=== PATIENT | male | born 1975 | race Caucasian/White ===

== ENCOUNTER 2023-07-06 16:28 | Emergency (ER) | payer OTHER, SELFPAY ==
[2023-07-06 16:40] VITALS: BP 125/77; PULSE 98; RESP 18; TEMP 37.1; O2SAT 99; BMI 24.4
--- NOTE | 2023-07-06 16:59 | ED.NURSE ---
TDap last received August,.
--- NOTE | 2023-07-06 17:20 | ED.WOUNDLAC ---
HPI - Wound/Laceration General Date Seen: 07/06/23 Chief Complaint: Laceration/Wound Stated Complaint: needs sutures on hand Time Seen by Provider: 07/06/23 16:53 Source: patient Mode of arrival: ambulatory Limitations: no limitations History of Present Illness HPI narrative: Patient is a 48-year-old male with no pertinent medical history presenting to emergency department for he laceration to the right hand. Laceration was from a teen some when he was cutting branches down. He is not sure exactly how he caught seen in the chain saw but states this happened shortly prior to arrival. Laceration is just between the thumb and index finger. No other injuries noted. Last Tdap was 2018. Related Data Home Medications Medication Instructions Recorded Confirmed omeprazole magnesium 20 mg 20 mg PO QDAY 09/29/22 09/29/22 capsule,delayed release (Acid [employer]per (omeprazole)) Previous Rx's Medication Instructions Recorded amoxicillin 875 mg-potassium 1 tab PO Q12H #20 tabs 09/29/22 clavulanate 125 mg tablet Allergies Allergy/AdvReac Type Severity Reaction Status Date / Time No Known Drug Allergies Allergy Verified 09/29/22 10:46 Review of Systems Narrative: Negative unless stated in HPI Exam Narrative: Exam Narrative: Const: Well-nourished, Well-developed, in no distress Eyes: PERRL, no conjunctival injection, and symmetrical lids HENT: Atraumatic external nose and ears. Moist mucous membranes. MSK:Extremities w/o deformity, Normal Active ROM Skin: Warm, Dry. 1 cm laceration between the 1st and 2nd digits of the right hand Neuro: Normal Muscle tone, No focal neurological deficits. Psych: Awake, Alert, & Oriented x3. Appropriate mood and affect. Const: Vital Signs, click to edit/add: Vital Signs - 24 hr 07/06/23 16:40 Temperature 98.7 F Pulse Rate [Femora l] 98 Respiratory Rate 18 Blood Pressure [Ri ght Upper Arm] 125/77 Pulse Oximetry 99 Oxygen Delivery Me thod Room Air Course Vital Signs Vital signs: Initial Vital Signs Temperature 98.7 F 07/06/23 16:40 Temperature Source Temporal Artery Scan 07/06/23 16:40 Pulse Rate 98 07/06/23 16:40 Respiratory Rate 18 07/06/23 16:40 Blood Pressure 125/77 07/06/23 16:40 Blood Pressure Mean 93 07/06/23 16:40 Pulse Oximetry 99 07/06/23 16:40 Oxygen Delivery Method Room Air 07/06/23 16:40 Vital Signs Temperature 98.7 F 07/06/23 16:40 Pulse Rate 98 07/06/23 16:40 Respiratory Rate 18 07/06/23 16:40 Blood Pressure 125/77 07/06/23 16:40 Pulse Oximetry 99 07/06/23 16:40 Oxygen Delivery Method Room Air 07/06/23 16:40 Temperature 98.7 F 07/06/23 16:40 Pulse Rate 98 07/06/23 16:40 Respiratory Rate 18 07/06/23 16:40 Blood Pressure 125/77 07/06/23 16:40 Pulse Oximetry 99 07/06/23 16:40 Oxygen Delivery Method Room Air 07/06/23 16:40 MDM - Wound/Laceration MDM Narrative Medical decision making narrative: Patient is a 48-year-old male for laceration to his right hand. This was done with a chainsaw Biaxin. There is a 1 cm linear laceration. Area was clean any is full range of motion of the fingers with no signs of deeper injuries. He is up-to-date on his tetanus. See laceration repair note. He tolerated this procedure well. He was discharged home on Keflex prescribed through [facility]. He was started antibiotics due to chain saws not typically being very clean instruments and concern for possibly developing an infection. Discharge Plan Discharge Clinical Impression: Laceration Patient Disposition: Home, Self-Care Condition: Stable Instructions: Laceration (ED) Additional Instructions: Follow-up with your primary care provider in the next 7 days to have the for sutures removed. For next 6 months, once sutures are removed, whenever you goes outside put a tab of sunscreen over the laceration site to improve scar appearance. Topical antibiotics are not necessary at this time. Patient can shower but do not submerge the laceration until sutures are removed If you notice your fingers becomes swollen like a sausage, unable to fully extend, tender to palpation of the palmar aspect, or any concerns for worsening infection return to emergency department for evaluation. Take the antibiotics prescribed to you as directed Prescriptions: No Action omeprazole magnesium [Acid Automobile Mechanic Helper (omeprazole)] 20 mg capsule,delayed release(DR/EC) 20 mg PO QDAY amoxicillin-pot clavulanate 875-125 mg tablet 1 tab PO Q12H Qty: 20 0RF Follow Up/Referrals: Shelly Linda, [facility] [Primary Care Provider] - Stand Alone Forms: MyHealth Info Instructions Procedures Laceration Right hand: Name of person performing procedure: Carlos العلي Site: hand Side (If applicable): right Size (cm): 1 Description: linear Depth: simple, single layer Local Anesthetic: lidocaine 1% Amount of anesthesia used (mL): 3 Pre-repair: wound explored, irrigated extensively and deep structures intact Skin layer closed with: nylon Size (cm): 5-0 Number of sutures: 4 Technique: simple, interrupted
== END 2023-07-06 17:34 | disposition home or self-care (01) ==
PROVIDERS: Emergency Provider Student in an Organized Health Care Education/Training Program; PCP Nurse Practitioner Family
DX: S61.411A Laceration without foreign body of right hand, initial encounter (principal); W29.3XXA Contact with powered garden and outdoor hand tools and machinery, initial encounter
CPT/HCPCS: 12001; 99282; 99283